=== PATIENT | male | born 1975 | race Caucasian/White ===

== ENCOUNTER 2021-04-22 22:28 | Emergency (ER) | payer BC ==
[2021-04-23] MEDS ORDERED: BENADRYL 50MG C50 MG PO (01:45)
[2021-04-23] MEDS ORDERED: PEPCID20 MG PO (01:45)
[2021-04-23] MEDS ORDERED: PREDNISONE 50 M50 MG PO (01:45)
== END 2021-04-23 02:10 | disposition home or self-care (01) ==
LOC: ER1 22:28
DX: L23.5 Allergic contact dermatitis due to other chemical products (principal); I10 Essential (primary) hypertension; F17.210 Nicotine dependence, cigarettes, uncomplicated
CPT/HCPCS: 96372; 99283; J1200; J2930

== ENCOUNTER 2021-05-01 16:56 | Inpatient (IN) | payer BC ==
[~2021-05-01] VITALS: Ht 180.3 cm; Wt 72.6 kg
[~2021-05-01 16:56] MED LIST: BENADRYL 50MG C50 MG PO; PEPCID20 MG PO; PREDNISONE 50 M50 MG PO
[2021-05-01 18:30] LABS: HEMOGLOBIN 17.1 gm/dl (14.0-17.5); RED BLOOD COUNT 5.57 M/UL (4.20-5.50); WHITE BLOOD COUNT 12.8 K/UL (4.5-11.0)
[2021-05-01 18:57] LABS: BUN/CREATININE RATIO 8 (0-10)
[2021-05-02] MEDS ORDERED: FLONASE 0.05% N16 GM (01:00)
[2021-05-02] MEDS ORDERED: FAMOTIDINE20 MG PO (01:01)
[2021-05-02] MEDS ORDERED: TRAZODONE HCL150 MG PO (01:01)
[2021-05-02] MEDS ORDERED: PROTONIX 40 MG40 M1 PO (01:02)
[2021-05-02] MEDS ORDERED: INDERAL TAB 4040 MG PO (01:02)
[2021-05-02] MEDS ORDERED: LISINOPRIL40 MG PO (01:03)
[2021-05-02] MEDS ORDERED: VITAMIN D350 MCG PO (01:03)
[2021-05-02] MEDS ORDERED: ACETAMINOPHEN500 MG PO (01:04)
[2021-05-02] MEDS ORDERED: FLUOXETINE HCL40 MG PO (01:05)
[2021-05-02] MEDS ORDERED: ALLERGY RELIEF10 M1 PO (01:05)
[2021-05-02] MEDS ORDERED: TAB-A-VITE TA400 MC1 PO (01:06)
[2021-05-02] MEDS ORDERED: MONTELUKAST SOD10 MG PO (01:06)
[2021-05-02 04:15] LABS: RED BLOOD COUNT 4.31 M/UL (4.20-5.50); WHITE BLOOD COUNT 8.6 K/UL (4.5-11.0)
[2021-05-02 05:38] LABS: CAMPYLOBACTER Not Detected (Negative); CLOSTRIDIUM DIFFICILE TOX A/B Not Detected (Negative); CRYPTOSPORIDIUM Not Detected (Negative); E.COLI 0157 Not Detected (Negative); ENTEROAGGREGATIVE E.COLI (EAEC Not Detected (Negative); ENTEROPATHOGENIC E.COLI (EPEC) Not Detected (Negative); ENTEROTOXIGENIC E.COLI (ETEC) Not Detected (Negative); PLESIOMONAS SHIGELLOIDES Not Detected (Negative); SALMONELLA Not Detected (Negative); SHIG/ENTEROINVAS.ECOLI (EIEC) Not Detected (Negative); SHIGA-LIK TOX.PRO.E.COLI (STEC Not Detected (Negative); VIBRIO Not Detected (Negative); VIBRIO CHOLERAE Not Detected (Negative); YERSINIA ENTEROCOLITICA Not Detected (Negative)
[2021-05-02 05:39] LABS: ADENOVIRUS F 40/41 Not Detected (Negative); ASTROVIRUS Not Detected (Negative); ENTAMOEBA HISTOLYTICA Not Detected (Negative); GIARDIA LAMBLIA Not Detected (Negative); ROTOVIRUS A Not Detected (Negative); SAPOVIRUS Not Detected (Negative)
[2021-05-02 13:56] LABS: BUN/CREATININE RATIO 20 (0-10)
[2021-05-02 14:42] LABS: NOROVIRUS GI/GII DETECTED (Negative)
[2021-05-02 18:36] LABS: BUN/CREATININE RATIO 23 (0-10)
[2021-05-03 04:52] LABS: HEMOGLOBIN 15.1 gm/dl (14.0-17.5); RED BLOOD COUNT 4.63 M/UL (4.20-5.50); WHITE BLOOD COUNT 7.6 K/UL (4.5-11.0)
[2021-05-03 05:13] LABS: BUN/CREATININE RATIO 25 (0-10)
== END 2021-05-03 16:51 | DRG 392 ==
LOC: ER1 16:56 → MED SURG 4 20:34 → CDU 20:34 → MED SURG 4 05-02 01:05
PROVIDERS: Emergency Medicine; Internal Medicine; Nurse Practitioner; ADMIT Internal Medicine
DX: A08.11 Acute gastroenteropathy due to Norwalk agent (principal); E87.1 Hypo-osmolality and hyponatremia; E87.2 Acidosis; N17.9 Acute kidney failure, unspecified; Z20.822 Contact with and (suspected) exposure to COVID-19; I10 Essential (primary) hypertension; F10.10 Alcohol abuse, uncomplicated; E86.1 Hypovolemia; E86.0 Dehydration; F41.9 Anxiety disorder, unspecified; F17.210 Nicotine dependence, cigarettes, uncomplicated; F32.9 Major depressive disorder, single episode, unspecified; F90.9 Attention-deficit hyperactivity disorder, unspecified type
CPT/HCPCS: 36415; 80048; 80053; 80307; 81001; 82550; 82553; 82570; 83605; 83690; 83874; 84300; 84484; 85025; 85610; 85730; 87507; 89050; 93005; 96372; 96374; 99285; C9113; J0500; J1644; J3411; J7030; U0002

== ENCOUNTER 2021-09-01 19:24 | Emergency (ER) | payer BC ==
[~2021-09-01 19:24] MED LIST changes: +ACETAMINOPHEN500 MG PO; +ALLERGY RELIEF10 M1 PO; +FAMOTIDINE20 MG PO; +FLONASE 0.05% N16 GM; +FLUOXETINE HCL40 MG PO; +INDERAL TAB 4040 MG PO; +LISINOPRIL40 MG PO; +MONTELUKAST SOD10 MG PO; +PROTONIX 40 MG40 M1 PO; +TAB-A-VITE TA400 MC1 PO; +TRAZODONE HCL150 MG PO; +VITAMIN D350 MCG PO
[2021-09-01] MEDS ORDERED: LODINE CAP 300300 MG PO (22:14)
== END 2021-09-01 22:24 | disposition home or self-care (01) ==
LOC: ER1 19:24
DX: H92.03 Otalgia, bilateral (principal); J02.9 Acute pharyngitis, unspecified; I10 Essential (primary) hypertension; Z20.822 Contact with and (suspected) exposure to COVID-19; F41.9 Anxiety disorder, unspecified
CPT/HCPCS: 87081; 87880; 99283; U0002

== ENCOUNTER 2022-06-19 17:46 | Emergency (ER) | payer OTHER, MEDICAID ==
[~2022-06-19 17:46] MED LIST changes: +LODINE CAP 300300 MG PO
[2022-06-19] MEDS ORDERED: IBUPROFEN800 MG PO (20:05)
[2022-06-19] MEDS ORDERED: VISTARIL 25 MG25 MG PO (20:05)
== END 2022-06-19 20:25 | disposition home or self-care (01) ==
LOC: ER1 17:46
DX: S39.012A Strain of muscle, fascia and tendon of lower back, initial encounter (principal); L50.0 Allergic urticaria; I10 Essential (primary) hypertension; X58.XXXA Exposure to other specified factors, initial encounter
CPT/HCPCS: 72100; 96374; 99283; J1885; Q0177